=== PATIENT | male | born 1950 | race Caucasian/White ===

== ENCOUNTER → 2016-07-09 | Outpatient (CLI) | payer MEDICARE ==
[2016-07-09 09:42] LABS: Basophils % (A) 1 %; CHCM 32.9; Eosinophils # (A) 0.2 k/uL (0-0.7); Eosinophils % (A) 4 %; HCT 43.6 % (39.0-53.0); HDW 2.41; HGB 13.9 gm/dL (13.0-17.5); Luc # (Auto) 0.13; Luc % (Auto) 3; Lymphocytes # (A) 1.2 k/uL (1.0-4.8); Lymphocytes % (A) 28 %; MCH 30.2 pg (25.0-35.0); MCV 94.5 fL (80.0-100.0); Mean Platelet Volume 6.7; Monocytes # (A) 0.3 k/uL (0-1.0); Monocytes % (A) 6 %; Neutrophils # (A) 2.6 k/uL (1.3-7.7); Neutrophils % (A) 59 %; RBC 4.62 m/uL (4.30-5.90); RDW 13.2 % (11.5-15.5); WBC 4.5 k/uL (3.8-10.6); WBC (Perox) 4.38
[2016-07-09 12:27] LABS: ALT 38 U/L (21-72); AST 18 U/L (17-59); Alkaline Phosphatase 49 U/L (38-126); Anion Gap 12 mmol/L; Blood Urea Nitrogen 18 mg/dL (9-20); Calcium 9.5 mg/dL (8.4-10.2); Carbon Dioxide 23 mmol/L (22-30); Chloride 105 mmol/L (98-107); Cholesterol 156 mg/dL (<200); Glucose 149 mg/dL (74-99); HDL Cholesterol 54 mg/dL (40-60); Non-African American GFR(MDRD) >60 (>60 ml/min/1.73 sqM); Potassium 4.3 mmol/L (3.5-5.1); Sodium 140 mmol/L (137-145); Total Bilirubin 0.5 mg/dL (0.2-1.3); Total Protein 7.2 g/dL (6.3-8.2); Triglycerides 110 mg/dL (<150)
== END | disposition home or self-care (01) ==
LOC: LABWHC1 09:06
PROVIDERS: ATTEND Family Medicine
DX: E78.00 Pure hypercholesterolemia, unspecified (principal); E11.65 Type 2 diabetes mellitus with hyperglycemia; Z12.5 Encounter for screening for malignant neoplasm of prostate
CPT/HCPCS: 84439; 80061; 80053; 84443; 85025; 36415; G0103

== ENCOUNTER → 2017-05-13 | Outpatient (CLI) | payer MEDICARE ==
--- NOTE | 2017-05-13 11:13 | US ---
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 No nephrolithiasis is seen. No selene s are identified. The urinary bladder is anechoic. Bilateral ureteral jets are seen. Kidneys show normal cortical medullary differentiation. No ascites evident. Cyst of the lateral aspec t of the left kidney is anechoic with increased through transmission and imperceptible wall, mild irr egularity at the junction of the cortex in the cyst shows a nonaggressive appearance. Left renal marcin ex show some questionable increased echogenicity. IMPRESSION: Probable simple cyst left kidney as described, consider follow-up to assess for stability. Some incre ased cortical echogenicity may be due to medical renal disease.
== END | disposition home or self-care (01) ==
LOC: RADUSWWP 07:33
PROVIDERS: ATTEND Family Medicine
DX: R93.41 Abnormal radiologic findings on diagnostic imaging of renal pelvis, ureter, or bladder (principal); E11.21 Type 2 diabetes mellitus with diabetic nephropathy; Z88.0 Allergy status to penicillin
CPT/HCPCS: 76770

== ENCOUNTER 2020-09-29 14:27 | Emergency (ER) | payer MEDICARE ==
--- NOTE | 2020-09-29 16:19 | ED ---
URI HPI - General Chief Complaint: Upper Respiratory Infection Stated Complaint: COVID+,Wants BAM Time Seen by Provider: 09/29/20 16:02 Source: patient Mode of arrival: ambulatory Limitations: no limitations - History of Present Illness Initial Comments: 70-year-old male patient presents to the emergency department today requesting to receive monoclonal antibodies for COVID-19. The patient states he started having symptoms on 09/20/2020. Symptoms included general malaise, body aches, nasal congestion. States symptoms worsened and he went to his primary care physician and tested positive for COVID-19 today. It was recommended he come into the emergency department to receive antibody infusion. Patient states he does have a dry cough. Denies any shortness of breath. Reports mild general weakness. Denies taking any medication for his symptoms. Does have history of diabetes. Patient denies any recent rash, fever, chills, chest pain, abdominal pain, nausea, vomiting, diarrhea, constipation, back pain, numbness, tingling, hematuria, dysuria, urinary urgency, urinary frequency, headache, visual changes, or any other complaints. - Related Data Home Medications Medication Instructions Recorded Confirmed Glimepiride 1 mg PO DAILY 06/02/15 06/05/15 metFORMIN HCL 1,000 mg PO BID 06/02/15 06/05/15 Allergies Allergy/AdvReac Type Severity Reaction Status Date / Time Penicillins Allergy Rash/Hives Verified 09/29/20 15:18 Review of Systems ROS Statement: Those systems with pertinent positive or pertinent negative responses have been documented in the HPI. ROS Other: All systems not noted in ROS Statement are negative. Past Medical History Past Medical History: Cancer, Diabetes Mellitus Additional Past Medical History / Comment(s): HX OF COLON CA, History of Any Multi-Drug Resistant Organisms: None Reported Past Surgical History: Bowel Resection Additional Past Surgical History / Comment(s): SINUS SX, Additional Past Anesthesia/Blood Transfusion Reaction / Comment(s): "TAKES LONG TIME TO WAKE UP" Past Psychological History: No Psychological Hx Reported Smoking Status: Former smoker Past Alcohol Use History: Occasional Past Drug Use History: None Reported General Exam Limitations: no limitations General appearance: alert, in no apparent distress, other (This is a well- developed, well-nourished elderly male patient in no acute distress. Vital signs upon presentation temperature 98.0F, pulse 78, respirations 17, blood pressure 131/84, pulse ox 96% on room air.) Eye exam: Present: normal appearance, PERRL, EOMI. Absent: scleral icterus, conjunctival injection, periorbital swelling ENT exam: Present: normal exam, normal oropharynx, mucous membranes moist Respiratory exam: Present: normal lung sounds bilaterally. Absent: respiratory distress, wheezes, rales, rhonchi, stridor Cardiovascular Exam: Present: regular rate, normal rhythm, normal heart sounds. Absent: systolic murmur, diastolic murmur, rubs, gallop, clicks Neurological exam: Present: alert, oriented X3, CN II-XII intact Psychiatric exam: Present: normal affect, normal mood Skin exam: Present: warm, dry, intact, normal color. Absent: rash Course Vital Signs 09/29/20 09/29/20 09/29/20 15:14 15:59 18:09 Temperature 98.0 F 98.2 F Pulse Rate 78 64 Respiratory 17 16 18 Rate Blood Pressure 131/84 127/79 O2 Sat by Pulse 96 100 Oximetry Medical Decision Making - Medical Decision Making 70-year-old male patient presents to the emergency department sent by his physician to receive antibodies after testing positive for COVID-19. Patient states his been symptomatic since 09/20/2020. States he's had cough, congestion, body aches and low-grade fevers. Denies any shortness of breath or chest pain today. Physical examination was unremarkable. I did discuss the infusion including risks versus benefits. He does agree to receive a. Infusion was given with no adverse reaction. He'll be discharged primary care physician for recheck in 1-2 days. Return parameters were discussed in detail. He verbalizes understanding and agrees with this plan. Case discussed with my attending Dr. Yu. Disposition Clinical Impression: COVID-19 Disposition: HOME SELF-CARE Condition: Good Instructions (If sedation given, give patient instructions): Coronavirus Di sease 2019 (COVID-19) Additional Instructions: Rest. Increase fluids. Follow-up with her primary care physician for recheck in 1-2 days. Return for any new, worsening, or concerning symptoms. Is patient prescribed a controlled substance at d/c from ED?: No Referrals: Kentrell Hitchcock MD [Primary Care Provider] - 1-2 days Time of Disposition: 18:50
[2020-09-29] MEDS ORDERED: SODIUM CHLORIDE 0.9% 50 ML IVPB ONE (16:45)
[2020-09-29] MEDS ORDERED: CASIRIVIMAB (REGN10933) (EUA) 600 MG, IMDEVIMAB (REGN10987) (EUA) 600 MG in SODIUM CHLO... IVPB ONE (17:00)
[2020-09-29 18:12] VITALS: PULSE 64
[2020-09-29 18:53] VITALS: BP 130/71; RESP 16; TEMP 98.3
== END 2020-09-29 18:59 | disposition home or self-care (01) ==
LOC: EC 14:27
DX: U07.1 COVID-19 (principal); E11.9 Type 2 diabetes mellitus without complications; Z88.0 Allergy status to penicillin; Z79.84 Long term (current) use of oral hypoglycemic drugs; Z85.038 Personal history of other malignant neoplasm of large intestine; Z87.891 Personal history of nicotine dependence
CPT/HCPCS: 96365; 99284

== ENCOUNTER 2020-11-28 06:53 | Day surgery (SDC) | payer MEDICARE ==
[2020-11-26 11:19] VITALS: BMI 35.2
[~2020-11-28 06:53] MED LIST: LACTATED RINGERS 1,000 ML IV SCH
[2020-11-28 07:38] VITALS: RESP 16; TEMP 97
[2020-11-28 07:46] LABS: Glucose,Whole Blood 137 mg/dL (75-99)
[2020-11-28] MEDS ORDERED: LACTATED RINGERS 1,000 ML IV ONE ×2 (07:47)
[2020-11-28] MEDS ORDERED: PROPOFOL 10 MG/ML 20 ML VIAL IV ONE (07:51)
--- NOTE | 2020-11-28 08:11 | P.PCN ---
Date of Procedure: 11/28/20 Preoperative Diagnosis: Screening for colon cancer History of colon cancer Postoperative Diagnosis: Ascending colon polyp Patent anastomosis Procedure(s) Performed: Colonoscopy with hot snare polypectomy Anesthesia: MAC Surgeon: Stephen Faulkner Pathology: other (Ascending colon polyp) Condition: stable Disposition: same day Indications for Procedure: 70-year-old male presents today for screening colonoscopy. He does have a history of colon cancer and colon resection over 15 years ago. His last colo noscopy was clear. He denies any blood in his stool. Denies any changes to his bowel function. Operative Findings: Ascending colon polyp Patent anastomosis Description of Procedure: The patient was brought to the endoscopy suite and placed in left lateral decubitus position and adequate sedation was achieved using conscious sedation. A digital rectal exam was performed and internal hemorrhoids palpated. An endoscope was then placed in the rectum and advanced to the cecum as identified by landmarks including the appendiceal orifice and the ileocecal valve. The prep was good. The colon scope was then slowly withdrawn, examining for any mucosal malleus. The cecum, ascending, transverse, remaining descending colon and rectum were visualized adequately. There was a small polyp noted in the ascending colon. This was removed with hot snare polypectomy. Hemostasis was maintained. There were no large neoplastic lesions. There is no evidence of diverticulosis. The anastomosis at the rectum was patent without any ulceration. Retroflexion was performed in the rectum and internal hemorrhoids were visible. Excess air was removed, the colonoscope withdrawn and the procedure terminated. The patient was then transferred to the recovery unit in stable condition. Repeat colonoscopy should be performed in 5 years.
[2020-11-28 08:34] VITALS: BP 123/82; PULSE 50
== END 2020-11-28 08:48 | disposition home or self-care (01) ==
LOC: ORWHC2ENDO 06:53
PROVIDERS: ATTEND Surgery
DX: Z12.11 Encounter for screening for malignant neoplasm of colon (principal); D12.2 Benign neoplasm of ascending colon; E78.5 Hyperlipidemia, unspecified; Z85.038 Personal history of other malignant neoplasm of large intestine; Z90.49 Acquired absence of other specified parts of digestive tract; K64.8 Other hemorrhoids; M19.90 Unspecified osteoarthritis, unspecified site; E11.9 Type 2 diabetes mellitus without complications; G47.30 Sleep apnea, unspecified; I10 Essential (primary) hypertension; Z98.890 Other specified postprocedural states; Z82.49 Family history of ischemic heart disease and other diseases of the circulatory system; Z83.3 Family history of diabetes mellitus; Z80.0 Family history of malignant neoplasm of digestive organs; Z80.3 Family history of malignant neoplasm of breast; Z79.899 Other long term (current) drug therapy; Z79.84 Long term (current) use of oral hypoglycemic drugs; Z88.0 Allergy status to penicillin
CPT/HCPCS: 88305; 45385; J2704

== ENCOUNTER → 2021-08-12 | Outpatient (CLI) | payer MEDICARE ==
--- NOTE | 2021-08-13 03:32 | MR ---
EXAMINATION TYPE: MR knee RT wo con DATE OF EXAM: 08/12/2021 COMPARISON: None HISTORY: Right outer knee pain, pain behind knee, painful kneecap, and locking for 6 months. Multiplanar multiecho imaging of the right knee with no contrast. There is knee joint effusion. The anterior and posterior cruciate ligaments show no complete tear. The collateral ligaments are intact. There is subcutaneous edema around the knee. There is 1 cm fluid anterior to the patella that is consistent with some patella bursitis. There is large oblique tear through the posterior horn of the medial meniscus extending to the inferi or surface. The anterior horn appears intact. The lateral meniscus appears fairly normal. No evidence of a fracture. IMPRESSION: Large oblique tear through the posterior horn of the medial meniscus. No evidence of ligamentous tear . Moderate knee joint effusion. Anterior fluid consistent with patellar bursitis. No fracture seen.
== END | disposition home or self-care (01) ==
LOC: RADMRIMAIN 18:28
PROVIDERS: ATTEND Orthopaedic Surgery
DX: M23.321 Other meniscus derangements, posterior horn of medial meniscus, right knee (principal); M25.461 Effusion, right knee

== ENCOUNTER → 2021-08-21 | Outpatient (CLI) | payer MEDICARE ==
[2021-08-21 19:04] LABS: Basophils # (A) 0.05 X 10*3/uL (0.00-0.10); Basophils % (A) 0.8 %; Eosinophils # (A) 0.28 X 10*3/uL (0.04-0.35); Eosinophils % (A) 4.3 %; HCT 39.5 % (39.6-50.0); HGB 12.7 g/dL (13.0-17.0); Immature Grans, Automated 0.2 %; Lymphocytes # (A) 1.42 X 10*3/uL (0.90-5.00); Lymphocytes % (A) 21.9 %; MCH 30.3 pg (27.0-32.0); MCHC 32.2 g/dL (32.0-37.0); MCV 94.3 fL (80.0-97.0); Mean Platelet Volume 9.9 fL (9.5-12.2); Monocytes # (A) 0.61 X 10*3/uL (0.20-1.00); Monocytes % (A) 9.4 %; NRBC Per 100 WBC 0 /100 WBCS (0.0-0.0); Neutrophils # (A) 4.12 X 10*3/uL (1.80-7.70); Neutrophils % (A) 63.4 %; Platelet Count 241 X 10*3/uL (140-440); RBC 4.19 X 10*6/uL (4.40-5.60); RDW 14.7 % (11.5-14.5); WBC 6.49 X 10*3/uL (4.50-10.00)
[2021-08-21 23:36] LABS: Anion Gap 17.4 mmol/L (10.00-18.00); Carbon Dioxide 24.4 mmol/L (20.0-27.5); Potassium 4.7 mmol/L (3.5-5.5)
== END | disposition home or self-care (01) ==
LOC: LABPAT 13:57
PROVIDERS: ATTEND Orthopaedic Surgery
DX: Z01.812 Encounter for preprocedural laboratory examination (principal); M23.91 Unspecified internal derangement of right knee
CPT/HCPCS: 80051; 85025; 93005

== ENCOUNTER 2021-08-31 08:41 | Day surgery (SDC) | payer MEDICARE ==
[2021-08-26 12:17] VITALS: BMI 36.6
--- NOTE | 2021-08-30 11:32 | HP ---
HISTORY AND PHYSICAL DATE OF SURGERY: 08/31/2021 Heber Brock is a 71-year-old patient seen with progressive right knee pain. We discussed options for treatment. He elected to proceed with right knee arthroscopy. Consent was obtained. PAST MEDICAL HISTORY: [id number] diabetes. PAST SURGICAL HISTORY: Colon surgery. DAILY MEDICATIONS: Metformin, glimepiride. ALLERGIES: PENICILLIN. SOCIAL HISTORY: He denies tobacco use. PHYSICAL EVALUATION OF THE RIGHT KNEE: His range of motion is zero to 125. He has a mild effusion. Tenderness along the medial and lateral joint lines. Positive medial Loretta's. Positive lateral Loretta's. Plus 2/3 Avelina. Pain with rotation of the hip. Distal neurovascular exam is intact. Radiographs of the right knee revealed some osteoarthritic changes. MRI right knee revealed a large medial meniscal tear. IMPRESSION: 1. Internal derangement of right knee with medial meniscal tear. 2. Kue-yjflghh-qmdxoloxy diabetes. PLAN: Right knee arthroscopy with partial medial meniscectomy and debridement. MMODL / IJN: [id number] /
[~2021-08-31 08:41] MED LIST changes: +DEXAMETHASONE SOD PHOSPHATE 4 MG/ML 1 ML VIAL IV ONE; +MIDAZOLAM 2 MG/2 ML VIAL IV PRN; +ONDANSETRON 4 MG/2 ML VIAL IVP ONE; +ceFAZolin 3 GM in SODIUM CHLORIDE 0.9% 100 ML IVPB PRN
[2021-08-31 09:23] LABS: Glucose,Whole Blood 143 mg/dL (70-110)
[2021-08-31] MEDS ORDERED: BUPIVACAINE (PF) 0.25% 30 ML VIAL SQ ONE ×2 (09:41→10:30)
[2021-08-31] MEDS ORDERED: MIDAZOLAM 2 MG/2 ML VIAL ONE (09:49)
[2021-08-31] MEDS ORDERED: LIDOCAINE 2% INJ 20 MG/ML (2 ML VIAL) ONE (09:49)
[2021-08-31] MEDS ORDERED: PROPOFOL 10 MG/ML 20 ML VIAL IV ONE (09:49)
[2021-08-31] MEDS ORDERED: fentaNYL (PF) 50 MCG/ML 2 ML AMP ONE (09:49)
[2021-08-31 09:52] LABS: ALT 24 U/L (4-49); AST 20 U/L (17-59); African American GFR (CKD) >90 (>60 ml/min/1.73 sqM); Albumin 4.6 g/dL (3.5-5.0); Alkaline Phosphatase 60 U/L (38-126); Anion Gap 9 mmol/L; Blood Urea Nitrogen 15 mg/dL (9-20); Calcium 9.1 mg/dL (8.4-10.2); Carbon Dioxide 23 mmol/L (22-30); Chloride 107 mmol/L (98-107); Glucose 146 mg/dL (74-99); Non-African American GFR(CKD) >90 (>60 ml/min/1.73 sqM); Potassium 4.3 mmol/L (3.5-5.1); Sodium 139 mmol/L (137-145); Total Bilirubin 0.5 mg/dL (0.2-1.3); Total Protein 7.7 g/dL (6.3-8.2)
--- NOTE | 2021-08-31 10:45 | P.OP ---
Date of Procedure: 08/31/21 Preoperative Diagnosis: Internal derangement right knee Postoperative Diagnosis: 1. Tear medial and lateral meniscus right knee 2. Grade 4 chondromalacia medial femoral condyle right knee 3. Reactive synovitis medial, lateral and suprapatellar compartments right knee Procedure(s) Performed: 1. Arthroscopic partial medial and lateral meniscectomy right knee 2. Arthroscopic microfracture medial femoral condyle right knee 3. Arthroscopic partial synovectomy medial, lateral and suprapatellar compartments right knee Anesthesia: JAVIERA, local Surgeon: Arnulfo Gibbs Estimated Blood Loss (ml): 8 Pathology: none sent Condition: stable Disposition: PACU Indications for Procedure: 71-year-old patient seen with progressive right knee pain. After treatment options were discussed, he elected to proceed with arthroscopy. Operative Findings: See description of procedure Description of Procedure: Patient was taken to the operative suite. Patient underwent a general anesthetic by the department of anesthesia. Patient was given preoperative antibiotics. The right lower extremity was placed in a well-padded arthroscopic leg castillo. The right leg was prepped and draped in the normal sterile orthopedic fashion. A lateral parapatellar and suprapatellar incision was made. Trochars were inserted. Arthroscopy was initiated. Suprapatellar pouch revealed diffuse thick reactive synovitis. The patellofemoral joint appeared to articulate congruently. There with grade 2 chondromalacia of the patella without significant osteochondral tears present. The scope was guided into the medial gutter. No loose bodies or plica were identified. The scope was then guided into the medial compartment. A medial parapatellar incision was made. Trocar inserted followed by probe. There was a complex tear involving the po sterior horn medial meniscus was extending into midbody area. There was near grade 4 chondromalacia on the anterior aspect of the medial femoral condyle with small area of exposed bone present. There was some thick reactive synovitis anteriorly. I performed a partial medial meniscectomy down to stable meniscal tissue. I performed a chondroplasty of the medial femoral condyle. I performed a partial synovectomy decompressing thick reactive synovitis. The residual meniscus was stable. There was good decompression of the synovitis. I introduced a microfracture awl into the medial compartment. I performed a microfracture of the medial femoral condyle penetrating the bone with resultant bleeding at the microfracture site. The residual osteochondral surface was stable. Scope and probe were then guided into the intercondylar notch. Cruciates were identified, probed and found to be stable. The scope and probe were then guided into lateral compartment. There was a radial tear mid body lateral meniscus. There was thick reactive synovitis anteriorly. There were grade 1 chondromalacia changes involving lateral. I performed a partial lateral meniscectomy down to stable meniscal tissue. I performed a partial synovectomy decompressing the reactive synovitis anteriorly. The residual meniscus was stable. There was good decompression of the synovitis. The scope was in guided back into the suprapatellar compartment. I introduced a motorized shaver into the super patellar compartment. I debrided some piecemeal fragments of meniscus that I encountered. I performed a partial synovectomy. Shaver was now removed. There was good decompression of the synovitis. I took one more look around the entire knee, no residual debris. Instruments were now removed from the joint. The joint was infiltrated with .25% Marcaine. Steri-Strips were applied to the portal sites. Sterile dressings were applied. The patient was placed into a RAZIA hose. No tourniquet was utilized. The patient was awakened, transferred to a bed and taken to recovery stable satisfactory condition.
[2021-08-31] MEDS: HYDROmorphone 0.5 MG/0.5 ML SYRINGE IVP PRN ×4 (10:47→11:13)
[2021-08-31] MEDS ORDERED: KETOROLAC 15 MG/ML 1 ML VIAL IVP ONE (10:47)
[2021-08-31 10:50] VITALS: TEMP 97
[2021-08-31 12:25] VITALS: BP 142/81; PULSE 56; RESP 20
== END 2021-08-31 13:03 | disposition home or self-care (01) ==
LOC: OR 08:41
PROVIDERS: ATTEND Orthopaedic Surgery
DX: M23.91 Unspecified internal derangement of right knee (principal); M23.203 Derangement of unspecified medial meniscus due to old tear or injury, right knee; M23.200 Derangement of unspecified lateral meniscus due to old tear or injury, right knee; M22.41 Chondromalacia patellae, right knee; M65.861 Other synovitis and tenosynovitis, right lower leg; G47.33 Obstructive sleep apnea (adult) (pediatric); E11.9 Type 2 diabetes mellitus without complications; Z98.890 Other specified postprocedural states; Z79.84 Long term (current) use of oral hypoglycemic drugs; Z88.0 Allergy status to penicillin
CPT/HCPCS: 80053; 29880; J2250; J1100; J0690; J2405; J3010; J1885; J2704; J1170; J2001

== ENCOUNTER → 2022-07-12 | Outpatient (CLI) | payer MEDICARE ==
--- NOTE | 2022-07-12 15:18 | US ---
EXAMINATION TYPE: US venous doppler duplex LE DATE OF EXAM: 07/12/2022 3:11 PM COMPARISON: NONE CLINICAL INDICATION: Male, 72 years old with history of E11.69 TYPE 2 DM; Leg swelling, pain SIDE PERFORMED: Bilateral TECHNIQUE: The lower extremity deep venous system is examined utilizing real time linear array sonog dario with graded compression, doppler sonography and color-flow sonography. VESSELS IMAGED: Common Femoral Vein Deep Femoral Vein Greater Saphenous Vein * Femoral Vein Popliteal Vein Small Saphenous Vein * Proximal Calf Veins (* superficial vessels) Right Leg: Negative for DVT Left Leg: Negative for DVT IMPRESSION: No evidence for DVT within the bilateral lower extremities imaged from the groin to the upper calves.
== END | disposition home or self-care (01) ==
LOC: RADUSWWP 14:41
PROVIDERS: ATTEND Family Medicine
DX: E11.69 Type 2 diabetes mellitus with other specified complication (principal); M79.606 Pain in leg, unspecified; R60.0 Localized edema
CPT/HCPCS: 93970